=== PATIENT | female | born 1965 | race Caucasian/White ===

== ENCOUNTER 2016-12-07 06:37 | Inpatient (IN) ==
--- NOTE | 2016-12-06 09:46 | Anesthesia Evaluation PreOp ---
Date of Encounter: 12/07/16 Time of Encounter: 06:56 - Past History Planned Operation: revision right TKA Cardiac History: HTN Pulmonary History: Smoker POULTRY PROCESSOR History: Denies Any Significant HX Other Medical History: Other (morbid obesity) Anesthesia History: No Prior Anesthetic Complications, Past Anesthesia (revison right TKA) : No Test: Negative Alcohol Use: none Drug use: none Medications and Allergies Gabapentin 600 mg PO HS 12/16/15 [History] Oxybutynin [Ditropan] 5 mg PO BID 12/16/15 [History] Triamterene/HCTZ 37.5/25mg [Dyazide] 1 tab PO DAILY 12/16/15 [History] Venlafaxine HCl [Venlafaxine HCl ER] 150 mg PO DAILY 12/16/15 [History] Aspirin Enteric Coated [Aspirin EC] 325 mg PO DAILY #21 tablet. 12/06/16 [Rx] OxyCODONE Immed Rel [Roxicodone 5 MG] 5 mg PO Q6HR PRN #28 tablet 12/06/16 [Rx] 3 Allergy/AdvReac Type Severity Reaction Status Date / Time No Known Allergies Allergy Verified 12/16/15 09:26 - Meds/Allergy Pre-op Review Medications Reviewed: Yes Allergies Reviewed: Yes Beta Blockers on Current Med List: No Anesthesia Results - Labs Laboratory Tests 12/04/16 12/04/16 12:32 12:32 Hgb 14.4 Hct 42.3 PT 11.2 INR 1.0 APTT 34.2 - Imaging EKG: report reviewed (SINUS RHYTHM LOW QRS VOLTAGE IN PRECORDIAL LEADS) Anesthesia Exam Height: 68in Weight: 300lbs NPO (# of Hours): 8 - HEENT Pupil (Motor): EOMI Mallampati: III Teeth: Normal (lower), Edentulous (uppuer) Oral Opening: Greater than 3 - POULTRY PROCESSOR LOC: Oriented POULTRY PROCESSOR Motor: Normal RUE, Normal LUE, Normal RLE, Normal LLE, Normal Face POULTRY PROCESSOR Sensory: Normal: RUE, LUE, RLE, LLE, Face - Cardiac Rhythm: Regular Murmur: None - Pulmonary Breath Sounds: bilateral Clear Respiratory Effort: Symmetrical Anesthesia Assess/Plan ASA Score: 3 Modified [place] Scale for Level of Consciousness: Cooperative, oriented, and tranquil Anesthetic Plan: General (with block) Monitoring Plan: Standard Monitors Recovery Plan: PACU (discussed risks of GA/block, agrees to proceed)
--- NOTE | 2016-12-06 21:36 | Discharge Summary ---
<Velia Espinoza Zainab - Last Filed: 12/06/16 21:33> Date of Encounter: 12/06/16 - Discharge Diagnosis (1) Status post revision of total knee replacement Priority: Primary Status: Acute Qualifiers: Laterality: right Qualified Code(s): Z96.651 - Presence of right artificial knee joint (2) Loosening of knee joint prosthesis Priority: Primary Status: Acute Qualifiers: Encounter type: initial encounter (3) HLD (hyperlipidemia) Priority: Secondary Status: Chronic Qualifiers: Hyperlipidemia type: pure hypercholesterolemia Qualified Code(s): E78.00 - Pure hypercholesterolemia, unspecified; E78.0 - Pure hypercholesterolemia (4) Anxiety Priority: Secondary Status: Chronic (5) Obesity Priority: Secondary Status: Chronic Qualifiers: Obesity type: due to excess calories Obesity classification: unspecified obesity classification Serious obesity comorbidity presence: unspecified whether serious comorbidity present Qualified Code(s): E66.09 - Other obesity due to excess calories; Z68.42 - Body mass index (BMI) 45.0-49.9, adult; Z68.42 - Body mass index (BMI) 45.0-49.9, adult; Z68.42 - Body mass index (BMI) 45.0- 49.9, adult; Z68.42 - Body mass index (BMI) 45.0-49.9, adult (6) Tobacco use Priority: Secondary Status: Chronic - Discharge Medications Home Medications: Oxybutynin [Ditropan] 5 mg PO BID 12/16/15 [History] Triamterene/HCTZ 37.5/25mg [Dyazide] 1 tab PO DAILY 12/16/15 [History] Venlafaxine HCl [Venlafaxine HCl ER] 150 mg PO DAILY 12/16/15 [History] Aspirin Enteric Coated [Aspirin EC] 325 mg PO DAILY #21 tablet. 12/06/16 [Rx] OxyCODONE Immed Rel [Roxicodone 5 MG] 5 mg PO Q6HR PRN #28 tablet 12/06/16 [Rx] Naproxen 500 mg PO BID 12/07/16 [History] Allergies/Adverse Reactions: 3 Allergy/AdvReac Type Severity Reaction Status Date / Time No Known Allergies Allergy Verified 12/07/16 07:21 Primary care physician: Jose Graham, - Patient Status Disposition: Home, Self-Care Condition: Good - Discharge Instructions Follow Up With: Jose Graham DO [Primary Care Provider] - - Hospital Course Hospital course: Ms. Dyer is a 51 year old female - Time Spent with Patient Total time spent providing and/or coordinating discharge services: <Everett Baugh - Last Filed: 12/08/16 06:38> Date of Encounter: 12/08/16 Time of Encounter: 06:38 - Discharge Diagnosis (1) Loosening of knee joint prosthesis Priority: Primary Status: Acute Qualifiers: Encounter type: subsequent encounter Qualified Code(s): T84.038D - Mechanical loosening of other internal prosthetic joint, subsequent encounter; Z96.659 - Presence of unspecified artificial knee joint; Z96.659 - Presence of unspecified artificial knee joint (2) Obesity Priority: Secondary Status: Chronic Qualifiers: Obesity type: due to excess calories Obesity classification: adult class 3 (BMI >= 40) Serious obesity comorbidity presence: unspecified whether serious comorbidity present Body mass index: BMI 45.0-49.9 Qualified Code(s): E66.09 - Other obesity due to excess calories; Z68.42 - Body mass index (BMI) 45.0-49.9, adult; Z68.42 - Body mass index (BMI) 45.0-49.9, adult; Z68.42 - Body mass index (BMI) 45.0-49.9, adult; Z68.42 - Body mass index (BMI) 45.0-49.9 , adult (3) Tobacco use Priority: Secondary Status: Chronic (4) Status post revision of total knee replacement Priority: Secondary Status: Chronic Qualifiers: Laterality: right Qualified Code(s): Z96.651 - Presence of right artificial knee joint (5) HLD (hyperlipidemia) Priority: Secondary Status: Chronic Qualifiers: Hyperlipidemia type: pure hypercholesterolemia Qualified Code(s): E78.00 - Pure hypercholesterolemia, unspecified; E78.0 - Pure hypercholesterolemia (6) Anxiety Priority: Secondary Status: Chronic Primary care physician: Jose Graham, - Patient Status Functional capacity at discharge: uses cane/walker Overall status at discharge: patient is progressing back to baseline - Hospital Course Hospital course: Ms. Dyer is a 51 year old female Status post revision right total knee. The patient had an uneventful postoperative course. They received antibiotics and physical therapy and were discharged in stable condition. There will follow -up in the office in 2 weeks. - Time Spent with Patient Total time spent providing and/or coordinating discharge services:
[2016-12-07] MEDS ORDERED: CeFAZolin Pre 3,000 MG/100 ML 3,000 MG/100 ML BAG IVPB ONE (06:55)
[2016-12-07] MEDS ORDERED: Albuterol 2.5 MG/3 ML NEBULIZER IH ONE (06:55)
[2016-12-07] MEDS ORDERED: Lidocaine -MPF 1% 2 ML VIAL ID ONE (06:55)
[2016-12-07] MEDS ORDERED: ceFAZolin 3,000 MG in Water for inj. (sterile) 30 ML IVP ONE (06:58)
[2016-12-07] MEDS ORDERED: Ringers Solution, Lactated 1,000 ML IVC SCH (07:00)
[2016-12-07] MEDS ORDERED: *HR* Succinylcholine 200 MG/10 ML VIAL IVP ONE (07:04)
[2016-12-07] MEDS ORDERED: Dexamethasone 4 MG/ML VIAL ONE ×2 (07:04→07:43)
[2016-12-07] MEDS ORDERED: Ondansetron 4 MG/2 ML VIAL ONE (07:04)
[2016-12-07] MEDS ORDERED: Lidocaine -MPF 4% 5 ML AMPUL ONE (07:04)
[2016-12-07] MEDS ORDERED: Lidocaine -MPF 2% 2 ML VIAL ONE (07:04)
[2016-12-07] MEDS ORDERED: *HR* Midazolam HCl 2 MG/2 ML VIAL ONE (07:10)
[2016-12-07] MEDS ORDERED: *HR* FentaNYL (PF) 100 MCG/2 ML VIAL ONE (07:11)
[2016-12-07] MEDS ORDERED: *HR* Propofol 200 MG/20 ML VIAL IVP ONE (07:11)
[2016-12-07] MEDS ORDERED: Ethanol\\Acetic Acid\\Na Ace\\Ben 1,000 ML IRRIG.SOLN IR ONE (07:26)
[2016-12-07] MEDS ORDERED: Metoclopramide 10 MG/2 ML VIAL IVP ONE (07:31)
[2016-12-07] MEDS ORDERED: Famotidine 20 MG/2 ML VIAL IVP ONE (07:31)
[2016-12-07] MEDS ORDERED: *HR* Promethazine 25 MG/ML VIAL IVP PRN (07:31)
[2016-12-07] MEDS ORDERED: *HR* Labetalol 20 MG/4 ML SYRINGE IVP PRN (07:31)
[2016-12-07] MEDS ORDERED: Acetaminophen IV 1,000 MG/100 ML INFUS..BTL IVPB ONE (07:32)
[2016-12-07] MEDS ORDERED: Bupivacaine/Clonidine Syringe 1 EACH SYRINGE ONE ×2 (07:42→07:53)
[2016-12-07] MEDS ORDERED: ROPIVACAINE HCL/PF 0.5% 30 ML VIAL ONE (07:42)
--- NOTE | 2016-12-07 07:51 | History & Physical Report ---
Date of Encounter: 12/07/16 Time of Encounter: 07:51 24 Hour HP Update - Instructions Instructions: If the History and Physical is less than 30 days old and was completed prior to A.M. admission and or procedure and has NOT been updated on calendar day of procedure please complete this update prior to performing procedure. - Update Patient reports changes in Medical Condition: No Changes in examination, assessment, or condition: No Changes in Medication: No Preop tests/diagnostics Reviewed: Yes Surgery Remains Indicated: Yes Consent for Planned Operative Procedure(s) Verified: Yes - Pre-Operative Checklist Preoperative Checklist Indicated: No Prophylactic Antibiotic Ordered: Yes Is VTE Prophylaxis Indicated?: Yes
--- NOTE | 2016-12-07 08:24 | Anesthesia Procedures ---
Date of Encounter: 12/07/16 Time of Encounter: 08:10 Procedures: Anesthesia - Nerve Block Procedure Date: 12/07/16 Time: 08:10 Allergies/Adv Reactions: nka Surgical Procedure: Right tka revision Checklist: Correct Patient Identifier, Correct procedure, History checked Correct side: Right Blood Thinner: No Monitor Applied: EKG, BP, Pulse Oximetry Supplemental Oxygen via Nasal Cannula (L/min): 2 Sedation: Versed (mg): 2 Sedation: Fentanyl (mcg): 100 Indication: Post Op Analgesia (per dr. tafoya) Pre-op Neuro Deficits: No Block Type: Femoral, Other (Ipack) Catheter placed: No Sterile Technique: Yes Ultrasound used: Yes Anatomy identified: Yes Visual spread of Local: Yes Neuro Stimulation: Yes (for femoral) Nerve Stimulator Range: 0.2 - 0.4 mA Blood on Needle Aspiration: No Smooth Injection of Local: Yes Pain with Injection of Local: No Prep: Chlorhexadine Needle: 22 x 50 mm Stimuplex (for femoral), 21 x 100 mm Stimuplex (for Ipack) Local: 0.25% Bupivicaine w/Clonidine 20 mcg/cc (40 cc for Ipack), Ropivacaine ( 30cc 0.5% for femoral) Volume (cc): 30, 40 Number of Attempts: 1 Complications: None/effective block Vitals: Vital Signs/O2 Sat/Glucose, Most Recent Temp Pulse Resp BP Pulse Ox 97.6 F 64 18 106/63 97 12/07/16 07:00 12/07/16 08:22 12/07/16 07:11 12/07/16 08:22 12/07/16 08:22 Comments: [facility]
[2016-12-07] MEDS ORDERED: *HR* Phenylephrine 10 MG/ML VIAL ONE (08:46)
--- NOTE | 2016-12-07 10:05 | Orthopedic Operative Note ---
Date of procedure: 12/07/16 Pre-op diagnosis: Aseptic loosening right total knee Post-op diagnosis: same Procedure: Procedure: Right revision total knee Estimated blood loss: 400 Hardware: Metal and polyethylene replacement. Biomet SSK femur: 60, 10 mm lateral distal augment, 16 x 120 stem Tibia: 71, 10 mm medial and lateral augments. A 14 x 120 stem Constrained Katherine: 24 Exam Under anesthesia: Full flexion. Full Extension significant valgus instability Procedural Notes: Patient noted to have subsidence and loosening of the tibial component. Operative procedure: The patient was brought to the operating room and placed on the operating room table. After general anesthesia was administered the operative knee was examined. Findings were noted in the exam under anesthesia. The operative extremity was prepped and draped in sterile surgical fashion. The patient received IV antibiotics prior to skin incision. A standard midline incision was made centered over the patella through the old incision. The incision was made through the skin and subcutaneous tissue. A medial parapatellar tendon approach was performed. Care was taken to preserve tissue along the medial aspect of the patella. And to protect the patella tendon. The deep MCL was released off the medial tibia. The infra patella fat pad was excised. Fluid was encountered this was normal joint fluid, Cultures were obtained and gram . The knee was brought into flexion the poly-was removed. The interface between the patient's femoral component and distal femur were disrupted with a osteotome and oscillating saw. Femoral component was removed removed without significant bone loss. Attention was then turned to the tibial component. The same technique was used to remove the tibial component by disrupting the interface between the patient's tibial component and the patients proximal tibia , tibial component had subsided. The tibial component was grossly loose, was removed without significant bone loss. The tibia was sized to a 71 was reamed up to a 14 x 120 Trial had good fit and fixation. The femur was sized to a 60, was reamed up to a 16 x 120 X. The finishing guide was seated and the box cut was made. The trial had good fit and fixation. Both trial components were seated and the 24 constrained Katherine was seated and secured. To gain proper alignment and appropriate stability the distal femur needed a 10 mm distal lateral augment and the tibia needed medial and lateral 10 mm augments. The knee had full flexion and full extension with no instability. Patella had excellent patella tracking. The trial components were removed. The knee sat for 2 minutes with a Betadine saline solution. It was irrigated out with 2 L of pulse irrigation. The components were assembled on the back table, the tibia cemented first followed by the femur. The 24 constrained liner was seated and secure. The knee was brought to full extension while the cement hardened. The patella tracked appropriately. After the cement hardened the knee was irrigated out again. The knee was closed by the PA. The extensor mechanism was closed with a running #2 Fiberwire suture and a running #2 PDS suture. The deep tissue was irrigated and closed deep with #1 PDS suture superficially with 0 PDS suture. The skin was closed with skin magali. The patient was placed in a sterile dressing and postoperative brace. They were extubated and transferred to recovery room in stable condition. Anesthesia: BAILEY Surgeon: Everett Baugh Condition: stable Disposition: PACU
[2016-12-07] MEDS: *HR* HYDROmorphone (PF) 1 MG/ML SYRINGE IVP PRN ×4 (10:37→11:12)
[2016-12-07 11:04] LABS: Hematocrit 40.6 % (35.3-44.9)
[2016-12-07] MEDS ORDERED: Ondansetron 4 MG/2 ML VIAL IVP PRN (11:07)
[2016-12-07] MEDS ORDERED: ceFAZolin 3,000 MG in D5% in Water 100 ML IVPB SCH (11:07)
[2016-12-07] MEDS ORDERED: Naloxone 0.4 MG/ML INJ IVP PRN (11:07)
[2016-12-07] MEDS ORDERED: *HR* OxyCODONE Immed Rel 5 MG TABLET PO PRN (11:07)
--- NOTE | 2016-12-07 11:17 | Anesthesia Evaluation Post Op ---
Date of Encounter: 12/07/16 Time of Encounter: 11:15 - Vital Signs Vital Signs: Vital Signs/O2 Sat/Glucose, Most Current Temp Pulse Resp BP Pulse Ox 12/07/16 11:09 69 16 132/72 92 12/07/16 10:59 73 16 121/63 92 12/07/16 10:49 70 16 135/70 92 12/07/16 10:39 72 18 126/67 94 12/07/16 10:29 97.1 F L 77 20 113/89 98 12/07/16 08:22 64 106/63 97 12/07/16 08:11 64 102/67 97 - Airway Airway: Non-obstructed - Cardiovascular Regular Rate - Mental Status Mental Status: Alert & Oriented, Answers Appropriately - Pain Pain Scale: 5 - Nausea Vomiting Nausea Vomiting: Not Present - Hydration Hydration: NPO - Discharge PostOp Status: Transfer Patient to floor Anes Supervising Prov Stmt: patient assessed in PACU, VSS, pain tolerable and answers questions appropriately. Transfer to floor in stable condition.
[2016-12-07] MEDS: Ringers Solution, Lactated 1,000 ML IVC SCH ×2 (11:40→20:05)
[2016-12-07] MEDS: Venlafaxine XR (24 HR) 150 MG CAP.ER.24H PO SCH (12:27)
[2016-12-07] MEDS: *HR* OxyCODONE Immed Rel 5 MG TABLET PO PRN ×3 (12:28→21:52)
[2016-12-07] MEDS ORDERED: ceFAZolin 3,000 MG in Water for inj. (sterile) 30 ML IVP SCH (16:00)
[2016-12-07] MEDS: ceFAZolin 3,000 MG in Water for inj. (sterile) 30 ML IVP SCH (17:03)
--- NOTE | 2016-12-07 17:06 | Physician Discharge Referral ---
Home Health/Hosp Referral Info Transfer to: Home Health Attending Provider: Provider in Charge Post Discharge: PCP - Diagnosis (1) Status post revision of total knee replacement Priority: Primary Status: Chronic (2) Loosening of knee joint prosthesis Priority: Primary Status: Acute (3) HLD (hyperlipidemia) Priority: Secondary Status: Chronic (4) Anxiety Priority: Secondary Status: Chronic (5) Obesity Priority: Secondary Status: Chronic (6) Tobacco use Priority: Secondary Status: Chronic - Respiratory Orders None Smoking Cessation: Smoking cessation has been advised. For more information, call the [place] Tobacco Quit Line at 2-720-MZSD-NOW. - Diet/Nutrition Diet/Nutrition Orders: Regular - Activity Activity Orders: Up ad kiet, Ambulate, Chair, Walker - Services Needed Following services are medically necessary services: Nursing, Home Health Aide, Physical Therapy, Occupational Therapy Home Care Orders: Opsite dressing, leave intact until first post-operative visit. If dressing becomes >50% saturated, contact office, remove dressing and place appropriate dressing in its place. Do not allow for dressing to get wet. Grover in place, plan to remove at POD#14-16. PT: Total Joint Precautions x 6 weeks. GENTLE knee ROM only. Apply ICE/cold therapy wrap 3-6x/day for 20 minutes at a time. Encourage ambulation throughout the day and incentive spirometer 10x/hour. Elevate affected extremity above heart as tolerated. Brace: Knee immobilizer at night and during ambulation until first post- operative appointment. - Transfer Medications Home Medications: Oxybutynin [Ditropan] 5 mg PO BID 12/16/15 [History] Triamterene/HCTZ 37.5/25mg [Dyazide] 1 tab PO DAILY 12/16/15 [History] Venlafaxine HCl [Venlafaxine HCl ER] 150 mg PO DAILY 12/16/15 [History] Aspirin Enteric Coated [Aspirin EC] 325 mg PO DAILY #21 tablet. 12/06/16 [Rx] OxyCODONE Immed Rel [Roxicodone 5 MG] 5 mg PO Q6HR PRN #28 tablet 12/06/16 [Rx] Naproxen 500 mg PO BID 12/07/16 [History] Allergies/Adverse Reactions: 3 Allergy/AdvReac Type Severity Reaction Status Date / Time No Known Allergies Allergy Verified 12/07/16 07:21 Certification: Further, I certify that my clinical findings support that this patient is homebound (i.e. absences from home require considerable and taxing effort and are for medical reasons or faith services or infrequently or short duration when for other reasons) because: Homebound Reason: Post-surgery restriction and or conditions limit ability to leave home Attestation: My signature below is to certify that this patient is under my care and that I, or nurse practitioner, or a physician's optometry assistant working with me, has a face-to -face encounter with this patient.
[2016-12-07] MEDS: *HR* Enoxaparin 30 MG/0.3 ML SYRINGE SQ SCH (17:08)
[2016-12-07] MEDS ORDERED: *HR* Enoxaparin 30 MG/0.3 ML SYRINGE SQ SCH (18:00)
[2016-12-07] MEDS ORDERED: Temazepam 15 MG CAPSULE PO PRN (21:00)
[2016-12-07] MEDS ORDERED: Sennosides 8.6 MG TABLET PO PRN (21:00)
[2016-12-07] MEDS ORDERED: MOM Conc 10 ML UD.LIQ PO PRN (21:00)
[2016-12-08] MEDS: ceFAZolin 3,000 MG in Water for inj. (sterile) 30 ML IVP SCH (00:33)
[2016-12-08] MEDS: *HR* HYDROmorphone (PF) 1 MG/ML SYRINGE IVP PRN ×4 (00:51→20:51)
[2016-12-08] MEDS: *HR* OxyCODONE Immed Rel 5 MG TABLET PO PRN ×5 (05:03→22:40)
[2016-12-08] MEDS: *HR* Enoxaparin 30 MG/0.3 ML SYRINGE SQ SCH ×2 (05:04→16:28)
[2016-12-08 05:48] LABS: Hematocrit 35.8 % (35.3-44.9)
[2016-12-08 05:52] LABS: Hemoglobin 12.1 g/dL (11.5-15.4)
[2016-12-08 06:04] LABS: BUN/Creatinine Ratio 18 (6-26); Blood Urea Nitrogen 14 mg/dL (7-20); Calcium 8.6 mg/dL (8.6-10.8); Carbon Dioxide 25 mEq/L (19-29); Chloride 105 mEq/L (98-109); Glucose 196 mg/dL (70-99); Osmolality,Calculated 292 (280-300); Potassium 3.9 mEq/L (3.5-4.5); Sodium 138 mEq/L (136-145); eGFR For African Americans > 60 (> 60); eGFR For Non-African Americans > 60 (> 60)
--- NOTE | 2016-12-08 06:39 | Orthopedics Progress Note ---
Date of Encounter: 12/08/16 Time of Encounter: 06:39 - Assessment and Plan (1) Loosening of knee joint prosthesis Current Visit: No Status: Acute Qualifiers: Encounter type: subsequent encounter Qualified Code(s): T84.038D - Mechanical loosening of other internal prosthetic joint, subsequent encounter; Z96.659 - Presence of unspecified artificial knee joint; Z96.659 - Presence of unspecified artificial knee joint (2) Obesity Current Visit: No Status: Chronic Qualifiers: Obesity type: due to excess calories Obesity classification: adult class 3 (BMI >= 40) Serious obesity comorbidity presence: unspecified whether serious comorbidity present Body mass index: BMI 45.0-49.9 Qualified Code(s): E66.09 - Other obesity due to excess calories; Z68.42 - Body mass index (BMI) 45.0-49.9, adult; Z68.42 - Body mass index (BMI) 45.0-49.9, adult; Z68.42 - Body mass index (BMI) 45.0-49.9, adult; Z68.42 - Body mass index (BMI) 45.0-49.9 , adult (3) Tobacco use Current Visit: No Status: Chronic (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 Afebrile vital signs stable. Operative extremity: Neurovascularly intact Dressing clean dry and intact Calves nontender Assessment and plan: Continue with postoperative care Hematocrit 35 discharged today Objective Vital signs: Vital Signs Temp Pulse Resp BP Pulse Ox 12/08/16 06:33 98.4 F 76 16 142/68 96 12/08/16 00:39 97.8 F 77 16 148/72 96 12/07/16 19:50 98.5 F 88 16 121/62 94 12/07/16 14:44 97.6 F 89 18 134/76 94 12/07/16 14:01 98.1 F 83 16 114/55 92 12/07/16 12:29 97.5 F L 72 16 127/65 92 12/07/16 12:10 97.4 F L 72 14 121/66 93 12/07/16 11:35 95 12/07/16 11:30 98.6 F 71 15 130/68 95 12/07/16 11:09 69 16 132/72 92 12/07/16 10:59 73 16 121/63 92 12/07/16 10:49 70 16 135/70 92 12/07/16 10:39 72 18 126/67 94 12/07/16 10:29 97.1 F L 77 20 113/89 98 12/07/16 08:22 64 106/63 97 12/07/16 08:11 64 102/67 97 12/07/16 07:11 18 129/68 94 12/07/16 07:00 97.6 F 70 18 129/68 94 Intake and Output 12/07/16 12/07/16 12/08/16 15:59 23:59 07:59 Intake Total 1100 / 1100 1060 / 1060 Output Total 600 / 600 200 / 200 600 / 600 Balance -570 / -570 900 / 900 460 / 460 Intake: IV Fluids 1000 / 1000 60 / 60 Lactated Ringers 1,000 ML @ 75 1000 / 1000 mls/hr IVC .[id number] ARMANDO Rx#: [id number] Ancef 3,000 MG In Water for inj 30 / 30 60 / 60 . (sterile) 30 ML @ 200 mls/hr IVP Q8H ARMANDO Rx#:[id number] Oral 0 / 0 100 / 100 1000 / 1000 Output: Urine 200 / 200 200 / 200 600 / 600 Estimated Blood Loss 400 / 400 Other: # Voids 1 1 # Urine Diapers 1 - Labs CBC & BMP: 12/08/16 04:49 12/08/16 04:49 Labs: Abnormal lab results Glucose 196 mg/dL (70-99) H 12/08/16 04:49 - VTE Documentation of Mechanical Device: Venous foot pump, device Consult Discharge Plan - Plan Referrals: Jsoe Graham DO [Primary Care Provider] -
[2016-12-08] MEDS: Venlafaxine XR (24 HR) 150 MG CAP.ER.24H PO SCH (07:22)
--- NOTE | 2016-12-08 14:51 | Event Note ---
Date of Encounter: 12/08/16 Time of Encounter: 14:50 PCR - Right TKR 12/08/16 POD#.1 - Patient was up on her own to use restroom without immobilizer, twisted knee. No fall or trauma noted, educated on need for brace during ambulation for support* Labs: Stable Patient seen at bedside. Pain control: Adequate Participating in PT. Knee immobilizer during ambulation, taking PT slow. All questions and concerns addressed. Educated on use of incentive spirometer, ambulation, and hydration. Patient educated on post-operative restrictions and care. Addressed: See above D/C plan: HH, in need of hospital bed, addressed with Navigator, continuity placed
[2016-12-09] MEDS: *HR* HYDROmorphone (PF) 1 MG/ML SYRINGE IVP PRN (02:07)
[2016-12-09] MEDS: *HR* OxyCODONE Immed Rel 5 MG TABLET PO PRN ×2 (03:18→07:36)
[2016-12-09 04:41] LABS: Hemoglobin 11.4 g/dL (11.5-15.4)
[2016-12-09 04:59] LABS: BUN/Creatinine Ratio 21 (6-26); Blood Urea Nitrogen 15 mg/dL (7-20); Calcium 8.5 mg/dL (8.6-10.8); Carbon Dioxide 27 mEq/L (19-29); Chloride 102 mEq/L (98-109); Glucose 152 mg/dL (70-99); Osmolality,Calculated 288 (280-300); Potassium 3.6 mEq/L (3.5-4.5); Sodium 137 mEq/L (136-145); eGFR For African Americans > 60 (> 60); eGFR For Non-African Americans > 60 (> 60)
[2016-12-09] MEDS: *HR* Enoxaparin 30 MG/0.3 ML SYRINGE SQ SCH (05:05)
[2016-12-09] MEDS: Venlafaxine XR (24 HR) 150 MG CAP.ER.24H PO SCH (07:36)
--- NOTE | 2016-12-09 08:42 | Orthopedics Progress Note ---
Date of Encounter: 12/09/16 Time of Encounter: 08:41 - Assessment and Plan (1) Loosening of knee joint prosthesis Current Visit: No Status: Acute Qualifiers: Encounter type: subsequent encounter Qualified Code(s): T84.038D - Mechanical loosening of other internal prosthetic joint, subsequent encounter; Z96.659 - Presence of unspecified artificial knee joint; Z96.659 - Presence of unspecified artificial knee joint (2) Obesity Current Visit: No Status: Chronic Qualifiers: Obesity type: due to excess calories Obesity classification: adult class 3 (BMI >= 40) Serious obesity comorbidity presence: unspecified whether serious comorbidity present Body mass index: BMI 45.0-49.9 Qualified Code(s): E66.09 - Other obesity due to excess calories; Z68.42 - Body mass index (BMI) 45.0-49.9, adult; Z68.42 - Body mass index (BMI) 45.0-49.9, adult; Z68.42 - Body mass index (BMI) 45.0-49.9, adult; Z68.42 - Body mass index (BMI) 45.0-49.9 , adult (3) Tobacco use Current Visit: No Status: Chronic (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 Afebrile vital signs stable. Operative extremity: Neurovascularly intact Dressing clean dry and intact Calves nontender Assessment and plan: Continue with postoperative care Discharged today Objective Vital signs: Vital Signs Temp Pulse Resp BP Pulse Ox 12/09/16 06:43 98.3 F 76 18 144/81 95 12/09/16 00:08 98.4 F 77 15 130/75 94 12/08/16 20:40 98.2 F 77 15 121/57 97 12/08/16 14:47 98.5 F 71 17 122/60 96 12/08/16 13:03 68 18 131/62 Intake and Output 12/08/16 12/09/16 12/09/16 23:59 07:59 15:59 Intake Total 460 / 460 100 / 100 Balance 460 / 460 100 / 100 Intake: Oral 460 / 460 100 / 100 Other: Meal Dinner Percent of Meal Consumed 100% # Voids 1 - Labs CBC & BMP: 12/09/16 03:48 12/09/16 03:48 Labs: Abnormal lab results Hgb 11.4 g/dL (11.5-15.4) L 12/09/16 03:48 Hct 34.0 % (35.3-44.9) L 12/09/16 03:48 Glucose 152 mg/dL (70-99) H 12/09/16 03:48 Calcium 8.5 mg/dL (8.6-10.8) L 12/09/16 03:48 - VTE Documentation of Mechanical Device: Venous foot pump, device Consult Discharge Plan - Plan Additional Instructions: Discharge Instructions: Total Knee Replacement Please call [facility] ([phone]), your Primary Care Physician, or report to the Emergency Room if you have any of the following symptoms: Nausea, vomiting, fever greater that 101.5, swelling, chest pain, shortness of breath, increased pain/redness/drainage/odor for your incision site, numbness/ tingling, or any other concerning symptoms. ACTIVITY:Weight-bearing as tolerated. You may progress off support (crutches or walker) as tolerated. MEDICATIONS: Upon discharge resume your home medications. Take all the medications as prescribed. Take a stool softener if taking narcotic pain medications. Stool softeners are only effective if you drink enough fluids. Drink 6-8 glass of water or fluids a day, unless this is not allowed for another health problem. Despite using stool softeners, if you haven't had a bowel movement in 3 days, please switch to a gentle laxative. Gentle laxatives are sold over the counter. You should have a bowel movement within 24 hours, if not call the office. You will be discharged from the hospital with a prescription for pain medication. You are encouraged to decrease the use of narcotic pain medication as tolerated. Should you require a refill, please call the office. [facility] prescribes narcotic pain medication for only 4-6 weeks after surgery. If you require pain medication beyond this time period, you may be referred to your Primary Care Physician or to the Pain Clinic for further evaluation. Plan ahead for refills on pain medication as many narcotics either need to be picked up at the office or mailed. It is best to call 48-72 hours in advance of needing a prescription refill so you don't run out of medication. To help control the post-operative pain, you may take NSAIDs (Aleve,Advil, Motrin, Ibuprofen, Naprosyn) or Tylenol as prescribed on the bottle in addition to the pain medication. ANTICOAGULATION (blood thinners): Continue your Aspirin, Lovenox or Coumadin as prescribed to help prevent a blood clot in the leg or in the lungs. As long as your incision remains dry and you tolerate the NSAIDs (Aleve, Advil, Motrin, ibuprofen, naprosyn), it is OK to use the NSAIDS while you are taking your anticoagulation medication. Should your incision start to drain, stop the NSAID and contact our office. Common symptoms of blood clot in the legs include: localized pain, swelling, calf tenderness, redness or discoloration of the skin. Blood clot in the lung symptoms include: shortness of breath, rapid pulse, sweating, and chest pain that worsens with deep breathing, coughing up blood, lightheadedness, feelings of anxiety. If you experience any of these symptoms notify your physician immediately, go to the emergency room, or if having trouble breathing, call 911. WOUND CARE: Leave the dressing on for 7 to 10days. You may change the dressing if it becomes saturated greater than 50%. Do not get the dressing wet at anytime. Wash your hands with antibacterial soap, rinse and dry prior to any wound care. If you have magali the visiting nurse or rehab facility can remove the stapes 10-14 days after surgery and place steri-strips across the wound. Leave the steri-strips in place until they fall off on their won. You may let water from the shower run on top of the steri-strips. If you do not have a visiting nurse or rehab facility, you will need to return to the office at 10-14 days for the magali to be removed. If you have itching or redness around the dressing call the office. FOLLOW-UP: Please follow up with your surgeon in the orthopedic clinic in 4 weeks from the day of surgery. If you have magali that need to be removed, you will need to come back to the office in 10-14 days from the day of surgery. Referrals: Everett Baugh MD [Partnered Physician] - 01/06/17 5:50 pm Jose Graham DO [Primary Care Provider] - Velia Espinoza, RAINER [Physician Concrete Sculptor] - 12/17/16 8:45 am
[2016-12-09 10:57] VITALS: BP 144/75
== END 2016-12-09 12:27 | disposition home health service (06) | DRG 302 ==
LOC: SAMDAY 06:37 → 3NENU 11:10
PROVIDERS: ADMIT Orthopaedic Surgery; ATTEND Orthopaedic Surgery

== ENCOUNTER 2021-09-08 14:56 | Observation (INO) ==
[2021-09-08 16:19] LABS: BUN/Creatinine Ratio 20 (6-26); Blood Urea Nitrogen 12 mg/dL (6-20); Calcium 9.7 mg/dL (8.6-10.3); Carbon Dioxide 28 mEq/L (23-29); Chloride 103 mEq/L (98-107); Glucose 109 mg/dL (70-105); Osmolality,Calculated 284 (280-300); Potassium 3.9 mEq/L (3.5-5.1); Sodium 137 mEq/L (136-145); Troponin I < 0.03 ng/mL (< 0.04); eGFR For African Americans > 60 (> 60); eGFR For Non-African Americans > 60 (> 60)
[2021-09-08 16:54] LABS: Basophils # 0.1 K/mcL (0.0-0.2); Basophils % 0.4 %; Eosinophils # 0.3 K/mcL (0.0-0.6); Eosinophils % 2.1 %; Hematocrit 45.2 % (35.3-44.9); Hemoglobin 15.7 g/dL (11.5-15.4); Immature Granulocytes % 0.2 % (0-4); Lymphocytes # 3.5 K/mcL (0.6-4.6); Mean Corpuscular HGB Conc 34.7 g/dL (31.6-35.5); Mean Corpuscular Hemoglobin 33.2 pg (28.0-33.3); Mean Corpuscular Volume 95.6 fL (83.0-100.0); Mean Platelet Volume 9.5 fL (9.4-12.4); Monocytes # 0.8 K/mcL (0.0-1.3); Neutrophils # 9.3 K/mcL (1.6-8.9); Platelet Count 243 K/mcL (140-400); Red Blood Count 4.73 M/mcL (3.82-4.97); Red Cell Distribution Width 12.6 % (11.5-14.5); Segmented Neutrophils % 66.3 %
[2021-09-08 17:02] LABS: Alanine Aminotransferase 25 Units/L (7-52); Albumin 4.4 g/dL (3.5-5.7); Albumin/Globulin Ratio 1.6 (1.1-2.2); Alkaline Phosphatase 62 Units/L (34-104); Aspartate Amino Transferase 20 Units/L (13-39); Bilirubin,Direct 0.2 mg/dL (0.0-0.2); Bilirubin,Indirect 0.5 mg/dL (0.0-1.0); Bilirubin,Total 0.7 mg/dL (0.3-1.0); Globulin 2.7 g/dL (2.4-3.5); Lipase 35 Units/L (11-82); Total Protein 7.1 g/dL (6.4-8.9)
[2021-09-08] MEDS ORDERED: Iopamidol - 370 500 ML MLS IVP ONE (17:07)
[2021-09-08 18:00] LABS: Influenza A PCR Negative (Negative); Influenza B PCR Negative (Negative); Resp. Syncytial Virus PCR Negative (Negative); SARS-CoV-2 by PCR (In House) Negative (Negative)
[2021-09-08 18:13] LABS: Bilirubin,Urine Negative (Negative); Blood,Urine Negative (Negative); Clarity,Urine Clear (Clear); Color,Urine Yellow (Yellow); Glucose,Urine (UA) Normal (Normal); Ketones,Urine Negative (Negative); Leukocyte Esterase,Urine Negative (Negative); Nitrite,Urine Negative (Negative); PH,Urine 7.5 pH Units (5.0-8.0); Protein,Urine Trace mg/dL (Neg-Trace); Specific Gravity,Urine 1.024 (1.010-1.025)
[2021-09-08] MEDS ORDERED: Ondansetron 4 MG/2 ML VIAL IVP ONE (18:50)
[2021-09-08] MEDS ORDERED: 0.9 % Sodium Chloride 1,000 ML IVC ONE (18:50)
[2021-09-08] MEDS ORDERED: Morphine Sulfate 2 MG/ML SYRINGE IVP ONE (18:52)
[2021-09-08] MEDS ORDERED: Melatonin 3 MG TABLET PO PRN (19:30)
[2021-09-08] MEDS ORDERED: Ondansetron 4 MG/2 ML VIAL IVP PRN (19:30)
[2021-09-08] MEDS ORDERED: Naloxone 0.4 MG/ML INJ IVP PRN (19:30)
[2021-09-08] MEDS ORDERED: D5% in Water 1,000 ML IVC PRN (19:46)
[2021-09-08] MEDS ORDERED: *HR* Dextrose 50 % in Water (Syg) 50 ML SYRINGE IVP PRN (19:46)
[2021-09-08] MEDS ORDERED: Dextrose Gel 15 GM/37.5 ML TUBE PO PRN ×2 (19:46)
[2021-09-08] MEDS: Ringers Solution, Lactated 1,000 ML IVC SCH (20:30)
[2021-09-08] MEDS: traZODone 50 MG TABLET PO SCH (20:31)
[2021-09-08 20:59] LABS: Chol/HDL Ratio 4.3 (0-4.9)
[2021-09-08 21:50] LABS: Estimated Average Glucose 117 mg/dl; Hemoglobin A1C 5.7 %
[2021-09-09 02:38] LABS: Hematocrit 41.3 % (35.3-44.9); Hemoglobin 14.4 g/dL (11.5-15.4); Mean Corpuscular HGB Conc 34.9 g/dL (31.6-35.5); Mean Corpuscular Hemoglobin 33.2 pg (28.0-33.3); Mean Corpuscular Volume 95.2 fL (83.0-100.0); Mean Platelet Volume 9.6 fL (9.4-12.4); Platelet Count 207 K/mcL (140-400); Red Blood Count 4.34 M/mcL (3.82-4.97); Red Cell Distribution Width 12.5 % (11.5-14.5); White Blood Count 11.5 K/mcL (4.3-11.1)
[2021-09-09] MEDS: Ringers Solution, Lactated 1,000 ML IVC SCH ×2 (02:48→05:39)
[2021-09-09 02:58] LABS: Alanine Aminotransferase 20 Units/L (7-52); Albumin 3.9 g/dL (3.5-5.7); Albumin/Globulin Ratio 1.4 (1.1-2.2); Alkaline Phosphatase 50 Units/L (34-104); Aspartate Amino Transferase 18 Units/L (13-39); BUN/Creatinine Ratio 24 (6-26); Bilirubin,Total 0.7 mg/dL (0.3-1.0); Blood Urea Nitrogen 11 mg/dL (6-20); Calcium 9.2 mg/dL (8.6-10.3); Carbon Dioxide 25 mEq/L (23-29); Chloride 105 mEq/L (98-107); Globulin 2.7 g/dL (2.4-3.5); Glucose 96 mg/dL (70-105); Magnesium 1.6 mg/dL (1.6-2.6); Osmolality,Calculated 287 (280-300); Phosphorous 3.8 mg/dL (2.7-4.5); Potassium 3.4 mEq/L (3.5-5.1); Sodium 139 mEq/L (136-145); Total Protein 6.6 g/dL (6.4-8.9); eGFR For African Americans > 60 (> 60); eGFR For Non-African Americans > 60 (> 60)
[2021-09-09] MEDS: Insulin LISPRO 300 UNITS/3 ML VIAL SUBQ SCH ×4 (05:32→16:59)
[2021-09-09] MEDS: *HR* Heparin 5,000 UNIT/ML VIAL SQ SCH ×2 (05:40→16:58)
[2021-09-09] MEDS: Venlafaxine XR (24 HR) 150 MG CAP.ER.24H PO SCH (09:10)
[2021-09-09] MEDS: Aspirin 81 MG TAB.CHEW PO SCH (09:10)
[2021-09-09] MEDS: Nicotine 21 MG PATCH.TD24 TD SCH (09:11)
[2021-09-09] MEDS: 0.9 % Sodium Chloride 1,000 ML IVC SCH ×2 (11:02→16:59)
[2021-09-09] MEDS: traZODone 50 MG TABLET PO SCH (20:30)
[2021-09-09] MEDS ORDERED: traZODone 50 MG TABLET PO SCH (21:00)
[2021-09-10] MEDS: Insulin LISPRO 300 UNITS/3 ML VIAL SUBQ SCH ×2 (01:00→05:50)
[2021-09-10] MEDS: 0.9 % Sodium Chloride 1,000 ML IVC SCH ×2 (01:18→08:20)
[2021-09-10 05:46] LABS: BUN/Creatinine Ratio 22 (6-26); Blood Urea Nitrogen 12 mg/dL (6-20); Calcium 7.9 mg/dL (8.6-10.3); Carbon Dioxide 28 mEq/L (23-29); Chloride 110 mEq/L (98-107); Glucose 69 mg/dL (70-105); Magnesium 1.6 mg/dL (1.6-2.6); Osmolality,Calculated 290 (280-300); Phosphorous 3.4 mg/dL (2.7-4.5); Potassium 3.7 mEq/L (3.5-5.1); Sodium 141 mEq/L (136-145); eGFR For African Americans > 60 (> 60); eGFR For Non-African Americans > 60 (> 60)
[2021-09-10] MEDS: *HR* Heparin 5,000 UNIT/ML VIAL SQ SCH (06:01)
[2021-09-10 07:43] LABS: Basophils % 0.6 %; Eosinophils # 0.3 K/mcL (0.0-0.6); Eosinophils % 3.7 %; Hematocrit 36.6 % (35.3-44.9); Immature Granulocytes % 0.3 % (0-4); Lymphocytes # 2.7 K/mcL (0.6-4.6); Lymphocytes % 39.6 %; Mean Corpuscular HGB Conc 34.4 g/dL (31.6-35.5); Mean Corpuscular Hemoglobin 33.6 pg (28.0-33.3); Mean Corpuscular Volume 97.6 fL (83.0-100.0); Mean Platelet Volume 9.3 fL (9.4-12.4); Monocytes # 0.5 K/mcL (0.0-1.3); Monocytes % 6.9 %; Neutrophils # 3.3 K/mcL (1.6-8.9); Platelet Count 180 K/mcL (140-400); Red Blood Count 3.75 M/mcL (3.82-4.97); Red Cell Distribution Width 12.6 % (11.5-14.5); Segmented Neutrophils % 48.9 %; White Blood Count 6.7 K/mcL (4.3-11.1)
[2021-09-10 07:48] LABS: Hemoglobin 12.6 g/dL (11.5-15.4)
[2021-09-10 07:50] VITALS: BP 120/78; TEMP 98.1; O2SAT 98
[2021-09-10] MEDS: Aspirin 81 MG TAB.CHEW PO SCH (08:14)
[2021-09-10] MEDS: Nicotine 21 MG PATCH.TD24 TD SCH (08:14)
[2021-09-10] MEDS: Venlafaxine XR (24 HR) 150 MG CAP.ER.24H PO SCH (08:14)
[2021-09-10 08:18] VITALS: PULSE 62
== END 2021-09-10 11:21 | disposition home or self-care (01) ==
LOC: EMEROOARM 14:56 → 3BNU 14:56 → SUATTDRO 19:40 → 3BNU 20:19
PROVIDERS: ADMIT Internal Medicine; ATTEND Internal Medicine